=== PATIENT | male | born 1995 | race Caucasian/White ===

== ENCOUNTER 2020-12-12 23:49 | Emergency (ER) | payer OTHER ==
[~2020-12-12 23:49] MED LIST: IBUPROFEN600 MG PO; LISINOPRIL2.5 MG PO; NORCO 5-325 TA1 EACH PO; NORCO 7.5-3251 EACH PO; PERCOCET 7.5-31 EACH PO
== END 2020-12-13 03:22 | disposition home or self-care (01) ==
LOC: ER1 23:49
DX: R10.11 Right upper quadrant pain (principal); R10.12 Left upper quadrant pain; I10 Essential (primary) hypertension; Z88.5 Allergy status to narcotic agent
CPT/HCPCS: 71045; 99283

== ENCOUNTER 2021-08-10 14:49 | Emergency (ER) | payer OTHER ==
[2021-08-10 15:21] LABS: HEMOGLOBIN 15.9 gm/dl (14.0-17.5); RED BLOOD COUNT 5.67 M/UL (4.20-5.50); WHITE BLOOD COUNT 7.3 K/UL (4.5-11.0)
[2021-08-10 15:56] LABS: BUN/CREATININE RATIO 19 (0-10)
[2021-08-10] MEDS ORDERED: TORADOL 10 MG T10 MG PO (20:10)
[2021-08-10] MEDS ORDERED: VISTARIL 50 MG50 MG PO (20:10)
== END 2021-08-10 20:20 | disposition home or self-care (01) ==
LOC: ER1 14:49
PROVIDERS: Emergency Medicine
DX: R07.89 Other chest pain (principal); E11.65 Type 2 diabetes mellitus with hyperglycemia; I10 Essential (primary) hypertension
CPT/HCPCS: 71045; 80053; 82550; 82553; 83690; 84484; 85025; 93005; 96374; 96375; 99285; C9113; J1885